=== PATIENT | female | born 1960 | race Caucasian/White ===

== ENCOUNTER 2020-07-16 09:24 | Day surgery (SDC) | payer OTHER, SELFPAY ==
[~2020-07-16] VITALS: Ht 154.9 cm; Wt 70.3 kg
[2020-07-16] MEDS ORDERED: MIDAZOLAM 5 MG/5 ML VIAL ONE (11:31)
[2020-07-16] MEDS ORDERED: diphenhydrAMINE 50 MG/ML VIAL ONE (11:31)
[2020-07-16] MEDS ORDERED: fentaNYL citrate 0.05 MG/ML VIAL ONE (11:31)
[2020-07-16] MEDS ORDERED: LIDOCAINE 2% 100 MG/5 ML UJET TP ONE (11:32)
[2020-07-16] MEDS ORDERED: fentaNYL citrate 0.05 MG/ML VIAL IVP ONE (14:05)
[2020-07-16] MEDS ORDERED: MIDAZOLAM 2 MG/2 ML VIAL IVP ONE (14:05)
== END 2020-07-16 13:14 | disposition home or self-care (01) ==
LOC: MDS 09:24 → MFCC 09:49 → MDS 13:14
PROVIDERS: ATTEND Internal Medicine Gastroenterology
DX: Z12.11 Encounter for screening for malignant neoplasm of colon (principal); D12.4 Benign neoplasm of descending colon; E78.5 Hyperlipidemia, unspecified; E03.9 Hypothyroidism, unspecified; Z88.0 Allergy status to penicillin; Z88.5 Allergy status to narcotic agent; Z79.82 Long term (current) use of aspirin; Z79.899 Other long term (current) drug therapy; Z90.49 Acquired absence of other specified parts of digestive tract; Z20.828 Contact with and (suspected) exposure to other viral communicable diseases
CPT/HCPCS: 45380; 45385; 88305; J2250; J3010; U0003; J1200

== ENCOUNTER 2022-11-10 07:53 | Day surgery (SDC) | payer OTHER ==
[~2022-11-10] VITALS: Ht 154.9 cm; Wt 61.2 kg
[2022-11-10] MEDS ORDERED: diphenhydrAMINE 50 MG/ML VIAL IVP SCH (08:25)
[2022-11-10] MEDS ORDERED: fentaNYL citrate 0.05 MG/ML VIAL IVP SCH (08:26)
[2022-11-10] MEDS ORDERED: MIDAZOLAM 2 MG/2 ML VIAL IVP SCH (08:26)
[2022-11-10] MEDS ORDERED: fentaNYL citrate 0.05 MG/ML VIAL ONE (08:27)
[2022-11-10] MEDS ORDERED: MIDAZOLAM 5 MG/5 ML VIAL ONE (08:27)
[2022-11-10] MEDS: MIDAZOLAM 5 MG/5 ML VIAL IV ONE (08:33)
[2022-11-10] MEDS: fentaNYL citrate 0.05 MG/ML VIAL IVP ONE (08:34)
[2022-11-10] MEDS: diphenhydrAMINE 50 MG/ML VIAL IVP ONE (08:35)
== END 2022-11-10 11:43 | disposition home or self-care (01) ==
LOC: MMU 07:53 → MDS 07:53
PROVIDERS: ATTEND Internal Medicine Gastroenterology
DX: R10.13 Epigastric pain (principal); K29.70 Gastritis, unspecified, without bleeding; K44.9 Diaphragmatic hernia without obstruction or gangrene; K22.2 Esophageal obstruction; E78.5 Hyperlipidemia, unspecified; E03.9 Hypothyroidism, unspecified; Z88.0 Allergy status to penicillin; Z79.899 Other long term (current) drug therapy; Z20.822 Contact with and (suspected) exposure to COVID-19
CPT/HCPCS: 43239; 87426; J1200; J2250; J3010; J7030

== ENCOUNTER 2023-11-18 11:48 | Day surgery (SDC) | payer OTHER ==
[~2023-11-18] VITALS: Ht 154.9 cm; Wt 63.5 kg
[2023-11-18] MEDS ORDERED: fentaNYL citrate 0.05 MG/ML VIAL ONE (12:32)
[2023-11-18] MEDS: fentaNYL citrate 0.05 MG/ML VIAL IVP ONE (13:22)
[2023-11-18] MEDS: LIDOCAINE 2% 100 MG/5 ML UJET TP ONE (13:33)
== END 2023-11-18 14:37 | disposition home or self-care (01) ==
LOC: MDS 11:48 → MMU 11:51 → MDS 14:37
PROVIDERS: ATTEND Internal Medicine Gastroenterology
DX: Z09 Encounter for follow-up examination after completed treatment for conditions other than malignant neoplasm (principal); Z86.010 Personal history of colon polyps; Z88.0 Allergy status to penicillin; Z79.82 Long term (current) use of aspirin; Z79.899 Other long term (current) drug therapy
CPT/HCPCS: 45378; J3010